=== PATIENT | female | born 1995 | race Caucasian/White ===

== ENCOUNTER 2023-05-07 11:47 | Inpatient (IN) ==
[2023-05-07] MEDS ORDERED: OXYTOCIN 30 UNITS/500 ML BAG IV PRN ×2 (12:34→23:04)
[2023-05-07] MEDS ORDERED: LIDOCAINE 1% LOCAL 20 ML VIAL INFIL PRN (12:34)
--- NOTE | 2023-05-07 12:40 | History & Physical Report ---
Date of Service May 07, 2023 Assessment & Plan (1) Supervision of normal intrauterine in primigravida: (2) Mother positive for group B Streptococcus colonization: Plan 27 yo G1 at 40 2/7 wga presents in labor VSS Fetus cat 1 Labor - augment PRN GBS+, pcn ordered epidural prn History of Present Illness Chief Complaint: ctx Primary Care Provider: Maritza Moreno, DO 27 yo G1 at 40 2/7 wga presents w/ ctx increasing in frequency and intensity. About q3min over the last hour. +FM; denies LOF, VB PNI: Maternal spina bifida occulta GBS+ Past PALLET REPAIRER Hx: G1 q26d cycles denies hx stis Allergies Allergy/AdvReac Type Severity Reaction Status Date / Time No Known Allergies Allergy Verified 05/04/23 11:52 Home Medications Medication Instructions Recorded Confirmed Type folic acid 1 mg tablet 4 mg PO DAILY 09/27/22 05/07/23 History omega-3 fatty acids [Fish Oil] PO 09/27/22 05/04/23 History prenat.vits,kelly,vom-qaqo-nlzyp 1 tab PO DAILY 09/27/22 05/07/23 History Patient History Medical History Asthma controlled, stable per pt; hasn't need inhalers for years Spina bifida occulta Surgical History S/P wisdom tooth extraction Family History (Updated 07/28/20 @ 12:45 by Elizabeth Davila MD) Grandmother (Maternal) Breast cancer, Onset Age: 74 Aunt No problems noted. Unknown Breast cancer Grandmother's aunt Other Arthritis Thyroid disease Denies family history of Ovarian cancer Colorectal cancer Uterine cancer Social History (Updated 09/27/22 @ 17:10 by My Burrows) Smoking Status: Never smoker Do You Dip or Chew Tobacco: No; Hx Alcohol Use: No Hx Substance Use: No Preferred Language: Bahraini Communication Ability: Effective Alumni Relations Officer Required: No Beliefs That Will Affect Care: None marital status: marital status details: Guillermo (26) [phone] Current Living Situation: Spouse Current Living Situation Comment: lives with spouse, 2 dogs. current occupational status: employed current occupation: Radiation therapist Other Information That Helps Us Care for You: No Feels Safe at Home: Yes Safety Concerns: Feels Safe At This Time Assistive Devices: None Physical Exam Genitourinary: OB Exam Abdomen: + vertex (confirmed by bsus) and + estimated weight (7-8) Manual OB Exam: + cervical dilation 4 cm, + cervical effacement 70% and + station -2 OB Exam Monitor Tracing: + external FHT monitor used, + external uterine monitor used (q3) and + category I (130/mod/+accel/-decel) Results & Data Vital Signs (Past 12 Hours) Vital Signs Temp Pulse Resp BP 05/07/23 12:07 98.1 F 20 05/07/23 12:00 74 120/82 Laboratory Results OB Labs: Blood Type A Positive 10/03/22 Antibody Screen NEGATIVE 10/03/22 Hemoglobin 12.2 g/dl (12.0-16.0) 02/16/23 Hematocrit 35.8 % (37.0-47.0) L 02/16/23 Mean Corpuscular Volume 86.0 fL (80.0-100.0) 10/03/22 Platelet Count 197 K/uL (130-400) 10/03/22 Rubella IgG Antibody Immune (Immune) 10/03/22 Rapid Plasma Reagin Nonreactive (Nonreactive) 10/03/22 Hepatitis B Surface Antigen. NON-REACTIVE (NON-REACTIVE) 10/03/22 Hepatitis C Antibody NEG (NEG) 01/10/18 Hepatitis C Antibody (EIA) NON-REACTIVE (NON-REACTIVE) 10/03/22 HIV (1&2) Ag and Ab Confirmation NON-REACTIVE (NON-REACTIVE) 10/03/22 Glucose 1 Hour 50 gm Load 97 mg/dl (70-130) 02/16/23 Maternal Serum Alpha Fetoprotein 46.3 ng/mL 11/22/22 OB Optional Labs: Chlamydia trachomatis RNA Not Detected (NotDetected) 10/03/22 Neisseria gonorrhoeae RNA Not Detected (NotDetected) 10/03/22 Alpha Fetoprotein Triple Screen SEE NOTE 11/22/22 Labs Reviewed: low risk cfdna neg cf/sma neg afp GBS neg Diagnostic Findings ant plac Coding Level of Care Code None Diagnoses Supervision of normal intrauterine in primigravida Z34.00 Mother positive for group B Streptococcus colonization P00.82
[2023-05-07] MEDS ORDERED: PENICILLIN G POTASSIUM 6 MU in DEXTROSE 5% 250 ML IV ONE (12:45)
[2023-05-07] MEDS: LACTATED RINGER'S 1,000 ML IV PRN ×2 (13:05→14:33)
[2023-05-07 13:08] LABS: Hematocrit (blood only) 34.5 % (37.0-47.0); Hemoglobin 11.2 g/dl (12.0-16.0); Mean Corpuscular Hemoglobin 25.2 pg (25.0-34.0); Mean Corpuscular Hgb Conc 32.5 g/dL (32.0-36.0); Mean Corpuscular Volume 77.5 fL (80.0-100.0); Mean Platelet Volume 11.8 fL (9.4-12.4); Platelet Count 123 K/uL (130-400); RDW Coefficient of Variation 14.1 % (11.5-14.5); RDW Standard Deviation 38.7 fL (36.4-46.3); Red Blood Count 4.45 M/uL (4.20-5.40); White Blood Count 10.72 K/ul (4.8-10.8)
[2023-05-07] MEDS ORDERED: SODIUM CHLORIDE 0.9% PF INJ 10 ML VIAL ONE (14:10)
[2023-05-07] MEDS ORDERED: fentaNYL citrate PF 100 MCG/2 ML VIAL ONE (14:10)
[2023-05-07] MEDS ORDERED: ePHEDrine sulfate 50 MG/ML AMP ONE (14:10)
[2023-05-07] MEDS ORDERED: BUPIVACAINE 0.25% PF 30 ML VIAL ONE (14:10)
[2023-05-07] MEDS ORDERED: LIDOCAINE 2%/EPINEPHRINE 1:200,000 20 ML PF ONE (14:10)
[2023-05-07] MEDS ORDERED: fentaNYL 2MCG/ML ROPIVACAINE 1.25MG/ML 100 ML BAG EPI ONE (14:11)
--- NOTE | 2023-05-07 15:03 | Anesthesiology Consultation ---
Date of Service May 07, 2023 Assessment & Plan Chart Review Chart Review: Acceptable Risk for Labor Epidural Consults Requested none History Height/Weight Height: 5 ft 7 in Weight: 70.307 kg Allergies Allergy/AdvReac Type Severity Reaction Status Date / Time No Known Allergies Allergy Verified 05/04/23 11:52 Medications Home Medications Medication Instructions Recorded Confirmed Last Taken folic acid 1 mg tablet 4 mg PO DAILY 09/27/22 05/07/23 05/07/23 omega-3 fatty acids [Fish Oil] PO 09/27/22 05/04/23 05/07/23 prenat.vits,kelly,oee-[id number]-uenxi 1 tab PO DAILY 09/27/22 05/07/23 05/07/23 Active Medications Generic Name Dose Route Start Last Admin Trade Name Freq PRN Reason Stop Dose Admin Lactated Ringer's 1,000 mls @ 125 mls/hr 05/07/23 12:34 05/07/23 14:33 Lr IV 05/09/23 12:33 125 mls/hr .Q8H PRN Administration L&D Protocol Protocol Past Medical History Medical History Asthma controlled, stable per pt; hasn't need inhalers for years Spina bifida occulta Past Family History Family History (Updated 07/28/20 @ 12:45 by Elizabeth Davila MD) Grandmother (Maternal) Breast cancer, Onset Age: 74 Aunt No problems noted. Unknown Breast cancer Grandmother's aunt Other Arthritis Thyroid disease Denies family history of Ovarian cancer Colorectal cancer Uterine cancer Past Surgical History Surgical History S/P wisdom tooth extraction Social History Smoking Status: Never smoker Do You Dip or Chew Tobacco: No Hx Alcohol Use: No Hx Substance Use: No Physical Exam Vital Signs Last Vital Signs Temp 36.7 C 05/07/23 12:07 Pulse 69 05/07/23 15:00 Resp 18 05/07/23 14:30 BP 105/59 L 05/07/23 15:00 Pulse Ox 100 05/07/23 14:59 Testing Laboratory Results 05/07/23 12:52
[2023-05-07] MEDS ORDERED: NALOXONE HCL 0.4 MG/1 ML VIAL/CARP IV PRN (15:04)
[2023-05-07] MEDS ORDERED: fentaNYL 2MCG/ML ROPIVACAINE 1.25MG/ML 100 ML BAG EPI PRN (15:04)
[2023-05-07] MEDS ORDERED: LIDOCAINE 2%/EPINEPHRINE 1:200,000 20 ML PF EPI STA (15:04)
[2023-05-07] MEDS ORDERED: LIDOCAINE 2% MPF LOCAL 5 ML VIAL EPI PRN (15:04)
[2023-05-07] MEDS ORDERED: NALOXONE HCL 1 MG in SODIUM CHLORIDE 0.9% 1,000 ML IV PRN (15:04)
[2023-05-07] MEDS ORDERED: ePHEDrine sulfate 50 MG/ML AMP IV PRN (15:04)
[2023-05-07] MEDS ORDERED: BUPIVACAINE 0.25% PF 30 ML VIAL EPI PRN (15:04)
[2023-05-07] MEDS ORDERED: NALBUPHINE HCL INJ 10 MG/ML AMP IV PRN (15:04)
[2023-05-07] MEDS ORDERED: diphenhydrAMINE 50 MG/ML VIAL IV PRN (15:04)
[2023-05-07] MEDS ORDERED: fentaNYL citrate PF 100 MCG/2 ML VIAL EPI STA (15:04)
[2023-05-07] MEDS ORDERED: BUPIVACAINE 0.25% PF 30 ML VIAL EPI STA (15:04)
[2023-05-07] MEDS ORDERED: SODIUM CHLORIDE 0.9% PF INJ 10 ML VIAL EPI PRN (15:04)
[2023-05-07] MEDS ORDERED: ROPIVACAINE 0.5% PF 5 MG/ML 20 ML VIAL EPI PRN (15:04)
[2023-05-07] MEDS ORDERED: SODIUM CHLORIDE 0.9% PF INJ 10 ML VIAL EPI STA (15:04)
[2023-05-07] MEDS ORDERED: fentaNYL citrate PF 100 MCG/2 ML VIAL EPI PRN (15:04)
[2023-05-07] MEDS ORDERED: PENICILLIN G POTASSIUM 3 MU in DEXTROSE 5% 100 ML IV PRN (15:34)
--- NOTE | 2023-05-07 18:46 | Labor Progress Brief Note ---
Date of Service May 07, 2023 Subjective Comfortable w/ epidural Assessment & Plan (1) Supervision of normal intrauterine in primigravida: (2) Mother positive for group B Streptococcus colonization: Plan 27 yo G1 at 40 2/7 wga presents in labor VSS Fetus cat 1 Labor - augment PRN, s/p arom. Discussed introitus does seem a little tight but hasn't seemed to affect dilation at all but will see if has impact on pushing GBS+, pcn ordered epidural in place Admission and Anticipated Discharge Date Admission Date: May 07, 2023 Physical Exam Genitourinary: Manual OB Exam: + cervical dilation 8 cm, + cervical effacement 90%, + station + 1 and + amniotic fluid (arom clear) OB Exam Monitor Tracing: + external FHT monitor used, + external uterine monitor used (q3) and + category I (130/mod/+accel/-decel) Results & Data Vital Signs (Past 12 Hours) Vital Signs Temp Pulse Resp BP Pulse Ox 05/07/23 12:07 98.1 F 20 05/07/23 18:39 99 05/07/23 18:39 61 05/07/23 18:34 98 05/07/23 18:34 70 05/07/23 18:35 63 05/07/23 18:35 110/61 05/07/23 18:30 18 05/07/23 18:30 18 05/07/23 18:29 97 05/07/23 18:29 85 05/07/23 18:24 100 05/07/23 18:24 78 05/07/23 18:21 60 05/07/23 18:21 119/74 05/07/23 18:19 100 05/07/23 18:19 63 05/07/23 18:14 99 05/07/23 18:14 66 05/07/23 18:09 100 05/07/23 18:09 60 05/07/23 18:00 20 05/07/23 18:00 98.8 F 20 05/07/23 18:00 20 05/07/23 18:00 98.8 F 20 05/07/23 18:04 100 05/07/23 18:04 64 05/07/23 18:05 60 05/07/23 18:05 125/77 05/07/23 17:59 100 05/07/23 17:59 60 05/07/23 17:54 95 05/07/23 17:54 75 05/07/23 17:52 88 L 05/07/23 17:51 78 05/07/23 17:52 79 05/07/23 17:51 101/53 L 05/07/23 17:49 100 05/07/23 17:49 77 05/07/23 17:44 100 05/07/23 17:44 73 05/07/23 17:30 16 05/07/23 17:30 16 05/07/23 17:00 18 05/07/23 17:00 18 05/07/23 17:39 100 05/07/23 17:39 69 05/07/23 17:35 94 H 05/07/23 17:35 117/65 05/07/23 17:34 79 L 05/07/23 17:34 67 05/07/23 17:29 99 05/07/23 17:29 65 05/07/23 17:26 87 L 05/07/23 17:26 65 05/07/23 17:24 95 05/07/23 17:24 67 05/07/23 17:21 66 05/07/23 17:21 116/80 05/07/23 17:19 100 05/07/23 17:19 60 05/07/23 17:14 100 05/07/23 17:14 66 05/07/23 17:09 100 05/07/23 17:09 64 05/07/23 17:07 62 05/07/23 17:07 115/73 05/07/23 17:04 98 05/07/23 17:04 69 05/07/23 17:03 85 L 05/07/23 17:03 69 05/07/23 16:59 100 05/07/23 16:59 67 05/07/23 16:54 95 05/07/23 16:54 64 05/07/23 16:51 66 05/07/23 16:51 109/72 05/07/23 16:49 100 05/07/23 16:49 63 05/07/23 16:44 100 05/07/23 16:44 68 05/07/23 16:39 100 05/07/23 16:39 65 05/07/23 16:35 87 L 05/07/23 16:35 74 05/07/23 16:34 100 05/07/23 16:34 66 05/07/23 16:35 65 05/07/23 16:35 113/76 05/07/23 16:29 97 05/07/23 16:29 75 05/07/23 16:24 100 05/07/23 16:24 76 05/07/23 16:19 100 05/07/23 16:19 65 05/07/23 16:20 65 05/07/23 16:20 110/70 05/07/23 16:14 100 05/07/23 16:14 65 05/07/23 16:09 100 05/07/23 16:09 70 05/07/23 16:00 20 05/07/23 16:00 98.1 F 20 05/07/23 16:05 67 05/07/23 16:05 115/72 05/07/23 16:04 100 05/07/23 16:04 72 05/07/23 16:03 85 L 05/07/23 16:03 68 05/07/23 15:59 100 05/07/23 15:59 64 05/07/23 15:54 100 05/07/23 15:54 67 05/07/23 15:51 66 05/07/23 15:51 118/77 05/07/23 15:49 100 05/07/23 15:49 69 05/07/23 15:30 18 05/07/23 15:30 18 05/07/23 15:49 85 L 05/07/23 15:49 65 05/07/23 15:44 100 05/07/23 15:44 67 05/07/23 15:39 100 05/07/23 15:39 74 05/07/23 15:37 66 05/07/23 15:37 115/67 05/07/23 15:34 100 05/07/23 15:34 68 05/07/23 15:29 100 05/07/23 15:29 64 05/07/23 15:24 100 05/07/23 15:24 69 05/07/23 15:19 100 05/07/23 15:19 68 05/07/23 15:16 63 05/07/23 15:16 109/69 05/07/23 15:14 100 05/07/23 15:14 67 05/07/23 15:11 71 05/07/23 15:11 103/75 05/07/23 15:09 100 05/07/23 15:09 70 05/07/23 15:00 20 05/07/23 15:00 98.2 F 20 05/07/23 15:03 18 05/07/23 15:03 18 05/07/23 15:08 20 05/07/23 15:08 20 05/07/23 15:07 71 05/07/23 15:07 118/67 05/07/23 14:58 18 05/07/23 14:58 18 05/07/23 12:10 98.2 F 05/07/23 15:04 100 05/07/23 15:04 68 05/07/23 15:00 69 05/07/23 15:00 105/59 L 05/07/23 14:59 100 05/07/23 14:59 67 05/07/23 14:58 78 05/07/23 14:58 112/66 05/07/23 14:56 69 05/07/23 14:56 117/71 05/07/23 14:54 99 05/07/23 14:54 67 05/07/23 14:54 120/75 05/07/23 14:53 70 05/07/23 14:53 117/62 05/07/23 14:52 70 05/07/23 14:52 118/63 05/07/23 14:49 91 05/07/23 14:49 84 05/07/23 14:49 71 05/07/23 14:49 142/77 H 05/07/23 14:48 86 L 05/07/23 14:48 89 05/07/23 14:48 130/79 05/07/23 14:44 95 05/07/23 14:44 70 05/07/23 14:41 82 L 05/07/23 14:41 84 05/07/23 14:39 100 05/07/23 14:39 74 05/07/23 14:30 18 05/07/23 14:30 18 05/07/23 14:34 99 05/07/23 14:34 64 05/07/23 14:33 93 05/07/23 14:33 69 05/07/23 14:29 100 05/07/23 14:29 64 05/07/23 14:25 90 05/07/23 14:25 74 05/07/23 14:24 100 05/07/23 14:24 70 05/07/23 14:00 18 05/07/23 14:00 18 05/07/23 13:30 20 05/07/23 13:30 20 05/07/23 14:19 100 05/07/23 14:19 73 05/07/23 13:00 20 05/07/23 13:00 20 05/07/23 12:30 18 05/07/23 12:30 18 05/07/23 12:10 20 05/07/23 12:10 20 05/07/23 12:00 74 120/82 Coding Level of Care Code None Diagnoses Supervision of normal intrauterine in primigravida Z34.00 Mother positive for group B Streptococcus colonization P00.82
--- NOTE | 2023-05-07 22:28 | Delivery Summary ---
Vaginal Delivery Summary Date of Service May 07, 2023 Vaginal Delivery Summary [facility] PREOPERATIVE DIAGNOSIS: 1. Single intrauterine at 40 2/7 wga 2. Labor 3. Maternal spina bifida occulta 4. GBS+ POSTOPERATIVE DIAGNOSIS: 1. Single intrauterine at 40 2/7 wga 2. Labor 3. Maternal spina bifida occulta 4. GBS+ 5. Delivered PROCEDURE: 1. Normal spontaneous vaginal delivery. SURGEON: Elizabeth Davila MD ANESTHESIA: Epidural. ESTIMATED BLOOD LOSS: 300 mL FLUIDS: Continuous LR. URINE OUTPUT: None. COMPLICATIONS: None. CONDITION: Stable. INDICATIONS: 27 yo G1 at 40 2/7 wga presented with contractions increasing in frequency and intensity and found to be 4cm on arrival. Penicillin was started for GBS+, received an epidural for pain control. She continued to progress and underwent AROM at 8cm. She continued to progress to complete and desired to push FINDINGS: A viable female infant, weight pending with Apgars of 7 and 9 at 1 and 5 minutes respectively. SPECIMEN: Cord blood OPERATIVE REPORT: The patient progressed to 10 cm, 100% effaced and +2 station, pushed over intact perineum with anesthesia to deliver a viable female infant, weight and Apgars as above. Head of delivered in THIAGO position. No nuchal cord was present. Body and shoulders were delivered without difficulty. was delivered to maternal abdomen and nursing staff. Delayed cord clamping was performed for 60 seconds. Cord was clamped and cut. Cord blood was obtained. Placenta delivered spontaneously intact with 3-vessel cord. IV oxytocin and fundal massage were given for excellent hemostasis. Vagina, cervix, perineum, and placenta were inspected. A left vaginal tear was repaired using 3-[address]-1, there was excellent hemostasis. Sponge and needle counts correct x2. No sponges were left behind. Mother and stable in immediate period. [facility] Vaginal Delivery Charge Vaginal Delivery Codes: 20136 global code for the antepartum, delivery, and post- Delivery Type Details: [facility]
[2023-05-07] MEDS ORDERED: DIPHTHERIA/TETANUS/PERTUSSIS Vaccine (Tdap, Age 7+yrs) 0.5mL SYR/VL IM ONE (23:04)
[2023-05-07] MEDS ORDERED: HYDROCORTISONE ACETATE 25 MG SUPP PR PRN (23:04)
[2023-05-07] MEDS ORDERED: ACETAMINOPHEN 325 MG TAB PO PRN (23:04)
[2023-05-07] MEDS ORDERED: BENZOCAINE 20% SPRY 85 APPLN/85 GM CAN EXT PRN (23:04)
[2023-05-08] MEDS: IBUPROFEN 600 MG TAB PO PRN ×4 (01:19→17:16)
--- NOTE | 2023-05-08 06:55 | Obstetrical Progress Note ---
Date of Service <Adam Reyes MD - Last Filed: 05/08/23 08:44> May 08, 2023 Assessment & Plan <Adam Reyes MD - Last Filed: 05/08/23 08:44> (1) (spontaneous vaginal delivery): Plan 27 yo , day 1, status post , on 05/07/23, 1st deg LAC - Pt doing well clinically. Feels well today. Eating well, voiding well, ambulating well. Pain well controlled with PRN pain meds. - Routine care -- OOB, ambulation, diet progression as tolerated Vital Signs reviewed and WNL (Tmax at 37.1 C) except as noted: BP 163/69, P 58 last night post-delivery. Hemoglobin Reviewed. 11.2 (05/07/23). Blood Type: A+, GBS+, Rubella Immune. Encourage ambulation, monitor and control pain with Motrin PRN, resume regular diet, monitor lochia. Breast feeding encouraged. After discharge will have 6 week follow-up with Dr. Davila. <Elizabeth Davila MD - Last Filed: 05/08/23 15:53> (1) (spontaneous vaginal delivery): Subjective <Adam Reyes MD - Last Filed: 05/08/23 08:44> Ambulation: ambulating normally Voiding: no voiding problems Passing Gas:: Yes Diet Tolerance:: regular diet Lochia:: Moderate Feeding Type:: breast feeding (will supplement with formula) Current Pain Level(1-10): 4 (cramping pain diffusely in abdominal area) Constitutional: no fever or no chills Respiratory: no cough or no dyspnea Cardiovascular: no chest pain or no palpitations Gastrointestinal: no abdominal pain, no nausea, no vomiting, no constipation (no BM yet) or no diarrhea/loose stools Musculoskeletal: no myalgia (no calf pain) Physical Exam <Adam Reyes MD - Last Filed: 05/08/23 08:44> Constitutional WD/WN, vitals as above Respiratory normal respiratory effort, lungs clear to auscultation Cardiovascular RRR, no murmur, no edema Gastrointestinal (Abdomen) normal bowel sounds, soft, nontender, no hepatosplenomegaly Musculoskeletal Extremities: extremities normal to inspection (no calf pain or tenderness) Results & Data <Adam Reyes MD - Last Filed: 05/08/23 08:44> Vital Signs (Past 12 Hours) Vital Signs Temp Pulse Pulse Resp BP BP Pulse Ox 05/08/23 03:36 36.4 C L 65 18 118/76 99 05/08/23 00:51 36.8 C 72 18 113/75 97 05/08/23 00:06 71 163/69 H 05/07/23 23:34 58 L 05/07/23 23:34 124/70 05/07/23 23:07 80 05/07/23 23:07 112/62 05/07/23 22:57 68 05/07/23 22:57 119/77 05/07/23 22:47 69 05/07/23 22:47 117/63 05/07/23 22:37 71 05/07/23 22:37 119/61 05/07/23 22:27 78 05/07/23 22:27 108/60 05/07/23 22:14 96 05/07/23 22:14 91 H 05/07/23 22:10 87 05/07/23 22:10 118/58 L 05/07/23 22:09 96 05/07/23 22:09 93 H 05/07/23 22:05 117 H 05/07/23 22:05 129/70 05/07/23 22:04 94 05/07/23 22:04 152 H 05/07/23 21:59 95 05/07/23 21:59 133 H 05/07/23 21:54 95 05/07/23 21:54 107 H 05/07/23 21:49 96 05/07/23 21:49 86 05/07/23 21:44 96 05/07/23 21:44 80 05/07/23 21:39 96 05/07/23 21:39 69 05/07/23 21:34 96 05/07/23 21:34 74 05/07/23 21:29 97 05/07/23 21:29 81 05/07/23 21:24 96 05/07/23 21:24 90 05/07/23 21:20 97 H 05/07/23 21:20 127/70 05/07/23 21:19 96 05/07/23 21:19 81 05/07/23 21:14 97 05/07/23 21:14 95 H 05/07/23 21:09 96 05/07/23 21:09 74 05/07/23 21:07 88 L 05/07/23 21:07 79 05/07/23 21:05 77 05/07/23 21:05 128/59 L 05/07/23 21:04 97 05/07/23 21:04 73 05/07/23 20:59 99 05/07/23 20:59 78 05/07/23 20:54 100 05/07/23 20:54 79 05/07/23 20:51 91 H 05/07/23 20:51 136/70 05/07/23 20:49 99 05/07/23 20:49 76 05/07/23 20:44 98 05/07/23 20:44 80 05/07/23 20:39 97 05/07/23 20:39 69 05/07/23 20:36 71 05/07/23 20:36 111/73 05/07/23 20:34 98 05/07/23 20:34 74 05/07/23 20:29 97 05/07/23 20:29 72 05/07/23 20:24 98 05/07/23 20:24 70 05/07/23 20:20 68 05/07/23 20:20 107/70 05/07/23 20:19 96 05/07/23 20:19 67 05/07/23 20:14 97 05/07/23 20:14 69 05/07/23 20:09 97 05/07/23 20:09 76 05/07/23 20:07 67 05/07/23 20:07 111/72 05/07/23 20:04 98 05/07/23 20:04 72 05/07/23 19:59 98 05/07/23 19:59 73 05/07/23 19:54 97 05/07/23 19:54 74 05/07/23 19:50 78 05/07/23 19:50 103/60 05/07/23 19:49 99 05/07/23 19:49 91 H 05/07/23 19:44 97 05/07/23 19:44 65 05/07/23 19:39 96 05/07/23 19:39 66 05/07/23 19:35 64 05/07/23 19:35 111/62 05/07/23 19:34 98 05/07/23 19:34 65 05/07/23 19:29 98 05/07/23 19:29 65 05/07/23 19:24 99 05/07/23 19:24 67 05/07/23 19:19 97 05/07/23 19:19 69 05/07/23 19:20 67 05/07/23 19:20 102/62 05/07/23 19:14 98 05/07/23 19:14 72 05/07/23 19:09 98 05/07/23 19:09 61 05/07/23 19:06 64 05/07/23 19:06 106/57 L 05/07/23 19:04 98 05/07/23 19:04 69 05/07/23 19:00 20 05/07/23 19:00 20 05/07/23 18:59 98 05/07/23 18:59 64 05/07/23 18:54 99 05/07/23 18:54 63 O2 Del Method 05/08/23 03:36 Room Air 05/08/23 00:51 Room Air 05/08/23 00:06 05/07/23 23:34 05/07/23 23:34 05/07/23 23:07 05/07/23 23:07 05/07/23 22:57 05/07/23 22:57 05/07/23 22:47 05/07/23 22:47 05/07/23 22:37 05/07/23 22:37 05/07/23 22:27 05/07/23 22:27 05/07/23 22:14 05/07/23 22:14 05/07/23 22:10 05/07/23 22:10 05/07/23 22:09 05/07/23 22:09 05/07/23 22:05 05/07/23 22:05 05/07/23 22:04 05/07/23 22:04 05/07/23 21:59 05/07/23 21:59 05/07/23 21:54 05/07/23 21:54 05/07/23 21:49 05/07/23 21:49 05/07/23 21:44 05/07/23 21:44 05/07/23 21:39 05/07/23 21:39 05/07/23 21:34 05/07/23 21:34 05/07/23 21:29 05/07/23 21:29 05/07/23 21:24 05/07/23 21:24 05/07/23 21:20 05/07/23 21:20 05/07/23 21:19 05/07/23 21:19 05/07/23 21:14 05/07/23 21:14 05/07/23 21:09 05/07/23 21:09 05/07/23 21:07 05/07/23 21:07 05/07/23 21:05 05/07/23 21:05 05/07/23 21:04 05/07/23 21:04 05/07/23 20:59 05/07/23 20:59 05/07/23 20:54 05/07/23 20:54 05/07/23 20:51 05/07/23 20:51 05/07/23 20:49 05/07/23 20:49 05/07/23 20:44 05/07/23 20:44 05/07/23 20:39 05/07/23 20:39 05/07/23 20:36 05/07/23 20:36 05/07/23 20:34 05/07/23 20:34 05/07/23 20:29 05/07/23 20:29 05/07/23 20:24 05/07/23 20:24 05/07/23 20:20 05/07/23 20:20 05/07/23 20:19 05/07/23 20:19 05/07/23 20:14 05/07/23 20:14 05/07/23 20:09 05/07/23 20:09 05/07/23 20:07 05/07/23 20:07 05/07/23 20:04 05/07/23 20:04 05/07/23 19:59 05/07/23 19:59 05/07/23 19:54 05/07/23 19:54 05/07/23 19:50 05/07/23 19:50 05/07/23 19:49 05/07/23 19:49 05/07/23 19:44 05/07/23 19:44 05/07/23 19:39 05/07/23 19:39 05/07/23 19:35 05/07/23 19:35 05/07/23 19:34 05/07/23 19:34 05/07/23 19:29 05/07/23 19:29 05/07/23 19:24 05/07/23 19:24 05/07/23 19:19 05/07/23 19:19 05/07/23 19:20 05/07/23 19:20 05/07/23 19:14 05/07/23 19:14 05/07/23 19:09 05/07/23 19:09 05/07/23 19:06 05/07/23 19:06 05/07/23 19:04 05/07/23 19:04 05/07/23 19:00 05/07/23 19:00 05/07/23 18:59 05/07/23 18:59 05/07/23 18:54 05/07/23 18:54 <Elizabeth Davila MD - Last Filed: 05/08/23 15:53> Co-Signing Physician Notes Resident Physician Supervision Note: I interviewed and examined the patient. Discussed with Dr. Reyes and agree with findings and plan as documented in the note. Any exceptions or clarifications are listed here: PP1 s/p , doing well. Continue routien pp care Documented By: Elizabeth Davila MD
[2023-05-08] MEDS: DOCUSATE SODIUM 100 MG CAP PO SCH ×2 (08:18→20:43)
[2023-05-08] MEDS: FERROUS SULFATE 325 MG TAB PO SCH (08:18)
[2023-05-08] MEDS: PRENATAL VITAMIN 1 TAB PO SCH (08:18)
--- NOTE | 2023-05-08 08:30 | Obstetrical Progress Note ---
Date of Service May 08, 2023 Assessment & Plan (1) Encounter for care and examination after delivery: 27 yo PP1 from , doing well -Meeting all pp milestones -A+/rubella immune/ -f/u 6 weeks for appt, continue routine pp care Subjective Ambulation: ambulating normally Voiding: no voiding problems Passing Gas:: Yes Diet Tolerance:: regular diet Lochia:: Small Feeding Type:: breast feeding Pain well managed with medication Review of Systems Denies fevers, chills, n/v, CACERES, CP, SOB Physical Exam Constitutional WD/WN, vitals as above no acute distress Respiratory normal respiratory effort, lungs clear to auscultation Cardiovascular RRR, no murmur, no edema Gastrointestinal (Abdomen) Percussion/Palpation: abdomen soft; abdomen nontender fundus firm at umbilicus and NT Musculoskeletal BLE symmetric, nonerythematous, nontender Results & Data Vital Signs (Past 12 Hours) Vital Signs Temp Pulse Pulse Resp BP BP Pulse Ox 05/08/23 03:36 97.5 F L 65 18 118/76 99 05/08/23 00:51 98.2 F 72 18 113/75 97 05/08/23 00:06 71 163/69 H 05/07/23 23:34 58 L 05/07/23 23:34 124/70 05/07/23 23:07 80 05/07/23 23:07 112/62 05/07/23 22:57 68 05/07/23 22:57 119/77 05/07/23 22:47 69 05/07/23 22:47 117/63 05/07/23 22:37 71 05/07/23 22:37 119/61 05/07/23 22:27 78 05/07/23 22:27 108/60 05/07/23 22:14 96 05/07/23 22:14 91 H 05/07/23 22:10 87 05/07/23 22:10 118/58 L 05/07/23 22:09 96 05/07/23 22:09 93 H 05/07/23 22:05 117 H 05/07/23 22:05 129/70 05/07/23 22:04 94 05/07/23 22:04 152 H 05/07/23 21:59 95 05/07/23 21:59 133 H 05/07/23 21:54 95 05/07/23 21:54 107 H 05/07/23 21:49 96 05/07/23 21:49 86 05/07/23 21:44 96 05/07/23 21:44 80 05/07/23 21:39 96 05/07/23 21:39 69 05/07/23 21:34 96 05/07/23 21:34 74 05/07/23 21:29 97 05/07/23 21:29 81 05/07/23 21:24 96 05/07/23 21:24 90 05/07/23 21:20 97 H 05/07/23 21:20 127/70 05/07/23 21:19 96 05/07/23 21:19 81 05/07/23 21:14 97 05/07/23 21:14 95 H 05/07/23 21:09 96 05/07/23 21:09 74 05/07/23 21:07 88 L 05/07/23 21:07 79 05/07/23 21:05 77 05/07/23 21:05 128/59 L 05/07/23 21:04 97 05/07/23 21:04 73 05/07/23 20:59 99 05/07/23 20:59 78 05/07/23 20:54 100 05/07/23 20:54 79 05/07/23 20:51 91 H 05/07/23 20:51 136/70 05/07/23 20:49 99 05/07/23 20:49 76 05/07/23 20:44 98 05/07/23 20:44 80 05/07/23 20:39 97 05/07/23 20:39 69 05/07/23 20:36 71 05/07/23 20:36 111/73 05/07/23 20:34 98 05/07/23 20:34 74 O2 Del Method 05/08/23 03:36 Room Air 05/08/23 00:51 Room Air 05/08/23 00:06 05/07/23 23:34 05/07/23 23:34 05/07/23 23:07 05/07/23 23:07 05/07/23 22:57 05/07/23 22:57 05/07/23 22:47 05/07/23 22:47 05/07/23 22:37 05/07/23 22:37 05/07/23 22:27 05/07/23 22:27 05/07/23 22:14 05/07/23 22:14 05/07/23 22:10 05/07/23 22:10 05/07/23 22:09 05/07/23 22:09 05/07/23 22:05 05/07/23 22:05 05/07/23 22:04 05/07/23 22:04 05/07/23 21:59 05/07/23 21:59 05/07/23 21:54 05/07/23 21:54 05/07/23 21:49 05/07/23 21:49 05/07/23 21:44 05/07/23 21:44 05/07/23 21:39 05/07/23 21:39 05/07/23 21:34 05/07/23 21:34 05/07/23 21:29 05/07/23 21:29 05/07/23 21:24 05/07/23 21:24 05/07/23 21:20 05/07/23 21:20 05/07/23 21:19 05/07/23 21:19 05/07/23 21:14 05/07/23 21:14 05/07/23 21:09 05/07/23 21:09 05/07/23 21:07 05/07/23 21:07 05/07/23 21:05 05/07/23 21:05 05/07/23 21:04 05/07/23 21:04 05/07/23 20:59 05/07/23 20:59 05/07/23 20:54 05/07/23 20:54 05/07/23 20:51 05/07/23 20:51 05/07/23 20:49 05/07/23 20:49 05/07/23 20:44 05/07/23 20:44 05/07/23 20:39 05/07/23 20:39 05/07/23 20:36 05/07/23 20:36 05/07/23 20:34 05/07/23 20:34
--- NOTE | 2023-05-08 08:45 | Anesthesia Procedure Note ---
Date of Service May 08, 2023 Anesthesia Post Epidural Note Vital Signs Vital Signs: Temp Pulse Resp BP Pulse Ox O2 Del Method 36.7 C 66 18 121/76 99 Room Air 05/08/23 08:05 05/08/23 08:05 05/08/23 08:05 05/08/23 08:05 05/08/23 03:36 05/08/23 08:05 Pain Intensity Lower Abdomen: Pain Intensity: 2 Notes Mental Status: alert / awake / arousable and participated in evaluation Nausea / Vomiting: adequately controlled Pain: adequately controlled Airway Patency, RR, SpO2: stable & adequate BP & HR: stable & adequate Hydration State: stable & adequate Neuraxial Anesthesia: was administered and sensory block resolved Anesthetic Complications: no major complications apparent and Pt Satisfied with anesthetic care Epidural: Removed without complications and With tip intact
--- NOTE | 2023-05-08 18:49 | Obstetrical Progress Note ---
Date of Service <Adam Reyes MD - Last Filed: 05/09/23 06:22> May 08, 2023 Assessment & Plan <Adam Reyes MD - Last Filed: 05/09/23 06:22> (1) (spontaneous vaginal delivery): Plan 27 yo , day 2, status post , of a girl on 05/07/23, 1st deg LAC - Pt doing well clinically. Feels well today. Eating well, voiding well, ambulating well. Pain well controlled with PRN pain meds. - Routine care -- OOB, ambulation, diet progression as tolerated Vital Signs reviewed and WNL (Tmax at 37.1 C) except as noted: BP 163/69, P 58 last night post-delivery. Hemoglobin Reviewed. 11.2 (05/07/23). Blood Type: A+, GBS+, Rubella Immune. Encourage ambulation, monitor and control pain with Motrin PRN, resume regular diet, monitor lochia. Breast feeding encouraged. After discharge will have 6 week follow-up with Dr. Davila. <Beatriz Guo MD, FACOG - Last Filed: 05/09/23 07:56> (1) (spontaneous vaginal delivery): Subjective <Adam Reyes MD - Last Filed: 05/09/23 06:22> Ambulation: ambulating normally Voiding: no voiding problems Passing Gas:: Yes Diet Tolerance:: regular diet Lochia:: Small Feeding Type:: breast feeding (and formula feeding) Current Pain Level(1-10): 4 (when pt moving around: cramping in abd area, residual pain in perineal area) Constitutional: no fever or no chills Respiratory: no cough or no dyspnea Cardiovascular: no chest pain or no palpitations Gastrointestinal: + abdominal pain (cramping pain when moving about); no nausea, no vomiting, no constipation (no BM yet) or no diarrhea/loose stools Musculoskeletal: no myalgia (no calf pain) Physical Exam <Adam Reyes MD - Last Filed: 05/09/23 06:22> Constitutional WD/WN, vitals as above Respiratory normal respiratory effort, lungs clear to auscultation Cardiovascular RRR, no murmur, no edema Gastrointestinal (Abdomen) normal bowel sounds, soft, nontender, no hepatosplenomegaly Musculoskeletal Extremities: extremities normal to inspection (no calf pain or tenderness) Results & Data <Adam Reyes MD - Last Filed: 05/09/23 06:22> Vital Signs (Past 12 Hours) Vital Signs Temp Pulse Resp BP O2 Del Method 05/08/23 17:20 36.5 C 66 18 121/76 Room Air 05/08/23 12:10 36.3 C L 67 18 121/84 Room Air 05/08/23 08:05 36.7 C 66 18 121/76 Room Air <Beatriz Guo MD, FACOG - Last Filed: 05/09/23 07:56> Co-Signing Physician Notes Resident Physician Supervision Note: I interviewed and examined the patient. Discussed with Dr. Reilly and agree with findings and plan as documented in the note. Any exceptions or clarifications are listed here: Doing well. Plan d/c home. Instructions given. Documented By: Beatriz Guo MD, FACOG
[2023-05-08] MEDS ORDERED: bisacodyL 5 MG TABEC PO SCH (20:00)
[2023-05-09] MEDS: FERROUS SULFATE 325 MG TAB PO SCH (09:23)
[2023-05-09] MEDS: PRENATAL VITAMIN 1 TAB PO SCH (09:23)
[2023-05-09] MEDS: DOCUSATE SODIUM 100 MG CAP PO SCH (09:24)
[2023-05-09] MEDS: IBUPROFEN 600 MG TAB PO PRN (09:24)
[2023-05-09] MEDS ORDERED: bisacodyL 10 MG SUPP PR PRN (23:04)
== END 2023-05-09 12:00 | disposition home or self-care (01) | DRG 807 ==
LOC: OPB 11:47 → 4S1 11:48 → 4E2 05-08 01:10

== ENCOUNTER 2025-06-12 14:25 | Inpatient (IN) ==
[2025-06-12] MEDS ORDERED: LIDOCAINE 1% LOCAL 20 ML VIAL INFIL PRN (16:40)
[2025-06-12] MEDS: LACTATED RINGER'S 1,000 ML IV PRN (16:49)
[2025-06-12] MEDS: PENICILLIN GK 6 MU in DEXTROSE 5% 250 ML IV STA (16:57)
[2025-06-12 17:19] LABS: Hematocrit (blood only) 35.2 % (37.0-47.0); Hemoglobin 11.6 g/dL (12.0-16.0); Mean Corpuscular Hemoglobin 26.6 pg (25.0-34.0); Mean Corpuscular Volume 80.7 fL (80.0-100.0); Platelet Count 135 K/uL (130-400); RDW Standard Deviation 38.8 fL (36.4-46.3); Red Blood Count 4.36 M/uL (4.20-5.40); White Blood Count 7.89 K/ul (4.8-10.8)
[2025-06-12] MEDS ORDERED: ROPIVACAINE 0.5% PF 5 MG/ML 20 ML VIAL EPI PRN (17:21)
[2025-06-12] MEDS ORDERED: diphenhydrAMINE 50 MG/ML VIAL IV PRN (17:21)
[2025-06-12] MEDS ORDERED: LIDOCAINE 2% MPF LOCAL 5 ML VIAL EPI PRN (17:21)
[2025-06-12] MEDS ORDERED: fentANYL 2 MCG/ML BUPIVacaine 0.125%-NSS 100ML BAG EPI PRN (17:21)
[2025-06-12] MEDS ORDERED: NALBUPHINE HCL INJ 10 MG/ML AMP IV PRN (17:21)
[2025-06-12] MEDS ORDERED: NALOXONE HCL 1 MG in SODIUM CHLORIDE 0.9% 1,000 ML IV PRN (17:21)
[2025-06-12] MEDS ORDERED: ONDANSETRON INJ 2 MG/ML 2 ML VIAL IV PRN (17:21)
[2025-06-12] MEDS ORDERED: BUPIVACAINE 0.25% PF 30 ML VIAL EPI PRN (17:21)
[2025-06-12] MEDS ORDERED: NALOXONE HCL 0.4 MG/1 ML VIAL/CARP IV PRN (17:21)
[2025-06-12] MEDS ORDERED: SODIUM CHLORIDE 0.9% PF INJ 10 ML VIAL EPI PRN (17:21)
--- NOTE | 2025-06-12 17:24 | Anesthesiology Consultation ---
Date of Service June 12, 2025 Assessment & Plan (1) Encounter for pre-operative examination: Chart Review Chart Review: Patient NOT seen in Pre Admission Testing and Acceptable Risk for Labor Epidural Consults Requested none History Height/Weight Height: 5 ft 7 in Weight: 70.307 kg Allergies Allergy/AdvReac Type Severity Reaction Status Date / Time No Known Allergies Allergy Verified 06/05/25 14:42 Medications Home Medications Medication Instructions Recorded Confirmed Last Taken folic acid 1 mg tablet 4 mg PO DAILY 09/27/22 06/05/25 05/07/23 omega-3 fatty acids [Fish Oil] PO 09/27/22 06/05/25 05/07/23 prenat.vits,kelly,axb-nadr-fkrvo 1 tab PO DAILY 09/27/22 06/12/25 06/11/25 21:00 pyridoxine (vitamin B6) 10 mg 10 mg PO DAILY 11/11/24 06/05/25 Unknown tablet ferrous sulfate 27 mg iron tablet 27 mg PO DAILY 06/12/25 06/12/25 06/11/25 21:00 Active Medications Generic Name Dose Route Start Last Admin Trade Name Freq PRN Reason Stop Dose Admin Lactated Ringer's 1,000 mls @ 125 mls/hr 06/12/25 16:40 06/12/25 16:49 Lr IV 06/14/25 16:39 999 mls/hr .Q8H PRN Administration L&D Protocol Protocol Penicillin G Potassium 6 mu/ 262 mls @ 250 mls/hr 06/12/25 16:45 06/12/25 16:57 Dextrose IV 06/12/25 17:47 250 mls/hr NOW STA Administration Past Medical History Medical History (Updated 06/12/25 @ 17:24 by Zoltan Keller MD) Encounter for pre-operative examination Asthma controlled, stable per pt; hasn't need inhalers for years Spina bifida occulta - No issues with labor epidural 05/07/23 (placed at L4-5 with 1 attempt)- patient denies issues from her standpoint with epidural - Please see 02/15/23 anesthesia consultation for further documentation Past Family History Family History Grandmother (Maternal) Breast cancer, Onset Age: 74 Aunt No problems noted. Unknown Breast cancer Grandmother's aunt Other Arthritis Thyroid disease Denies family history of Ovarian cancer Colorectal cancer Uterine cancer Past Surgical History Surgical History S/P wisdom tooth extraction Social History Smoking Status: Never smoker Do You Dip or Chew Tobacco: No Hx Alcohol Use: No Hx Substance Use: No Physical Exam Vital Signs Last Vital Signs Temp 36.7 C 06/12/25 14:42 Pulse 74 06/12/25 17:22 Resp 22 06/12/25 14:42 BP 129/80 06/12/25 14:33 Pulse Ox 100 06/12/25 17:22 Testing Laboratory Results 06/12/25 17:00
[2025-06-12] MEDS: BUPIVACAINE 0.25% PF 30 ML VIAL ONE (17:44)
[2025-06-12] MEDS: fentANYL 2 MCG/ML BUPIVacaine 0.125%-NSS 100ML BAG ONE (17:45)
[2025-06-12] MEDS: LIDOCAINE 2%/EPINEPHRINE 1:200,000 20 ML PF ONE (17:45)
[2025-06-12] MEDS: SODIUM CHLORIDE 0.9% PF INJ 10 ML VIAL ONE (17:58)
[2025-06-12] MEDS: BUPIVACAINE 0.25% PF 30 ML VIAL EPI STA (17:58)
[2025-06-12] MEDS: LIDOCAINE 2%/EPINEPHRINE 1:200,000 20 ML PF EPI STA (17:59)
[2025-06-12] MEDS: PENICILLIN GK 3 MU in DEXTROSE 5% 100 ML IV PRN (20:03)
[2025-06-12] MEDS: SODIUM CHLORIDE 0.9% PF INJ 10 ML VIAL EPI STA (20:05)
--- NOTE | 2025-06-12 20:43 | History & Physical Report ---
Date of Service June 12, 2025 Assessment & Plan (1) Encounter for supervision of normal in multigravida: Plan: Admit to L&D. EFM/toco. Labs. Would like to try to labor as naturally as possible. Admission and Anticipated Discharge Date Admission Date: June 12, 2025 History of Present Illness Chief Complaint: contractions Primary Care Provider: Maritza Moreno 29yo @ 39 07/30, came to L&D juan a all morning, some bloody show. + movement. No vaginal bleeding. Not leaking fluid. and Delivery Plans Patient with Spina Bifida Occulta per anesthesia-no need for another consult afp screen negative GBS Positive *treat in Labor Allergies Allergy/AdvReac Type Severity Reaction Status Date / Time No Known Allergies Allergy Verified 06/05/25 14:42 Home Medications Medication Instructions Recorded Confirmed Type folic acid 1 mg tablet 4 mg PO DAILY 09/27/22 06/05/25 History omega-3 fatty acids [Fish Oil] PO 09/27/22 06/05/25 History prenat.vits,kelly,mze-xbpf-mibic 1 tab PO DAILY 09/27/22 06/12/25 History pyridoxine (vitamin B6) 10 mg 10 mg PO DAILY 11/11/24 06/05/25 History tablet ferrous sulfate 27 mg iron tablet 27 mg PO DAILY 06/12/25 06/12/25 History Patient History Medical History (Updated 06/12/25 @ 17:24 by Zoltan Keller MD) Encounter for pre-operative examination Asthma controlled, stable per pt; hasn't need inhalers for years Spina bifida occulta - No issues with labor epidural 05/07/23 (placed at L4-5 with 1 attempt)- patient denies issues from her standpoint with epidural - Please see 02/15/23 anesthesia consultation for further documentation Surgical History S/P wisdom tooth extraction Family History Grandmother (Maternal) Breast cancer, Onset Age: 74 Aunt No problems noted. 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 Constitutional: WD/WN, vitals as above Respiratory: normal respiratory effort, lungs clear to auscultation no respiratory distress Cardiovascular: Rate/Rhythm: regular rate and regular rhythm Gastrointestinal (Abdomen): Inspection/Auscultation: abdomen normal to inspection Percussion/Palpation: abdomen soft; abdomen nontender Gravid. No s/s chorio or abruption. Skin: no rashes, warm and dry Psychiatric: A+Ox3, euthymic affect Results & Data Vital Signs (Past 12 Hours) Vital Signs Temp Pulse Resp BP Pulse Ox 06/12/25 20:32 99 06/12/25 20:32 77 06/12/25 20:27 82 L 06/12/25 20:27 78 06/12/25 20:22 100 06/12/25 20:22 67 06/12/25 20:17 100 06/12/25 20:17 67 06/12/25 20:12 99 06/12/25 20:12 68 06/12/25 20:10 67 06/12/25 20:10 112/68 06/12/25 20:07 98 06/12/25 20:07 83 06/12/25 20:02 100 06/12/25 20:02 79 06/12/25 19:57 99 06/12/25 19:57 74 06/12/25 19:55 77 06/12/25 19:55 109/66 06/12/25 19:52 100 06/12/25 19:52 78 06/12/25 19:47 100 06/12/25 19:47 75 06/12/25 19:42 99 06/12/25 19:42 76 06/12/25 19:40 73 06/12/25 19:40 111/63 06/12/25 19:37 100 06/12/25 19:37 73 06/12/25 19:32 99 06/12/25 19:32 76 06/12/25 19:27 100 06/12/25 19:27 77 06/12/25 19:26 80 06/12/25 19:26 116/71 06/12/25 19:22 100 06/12/25 19:22 75 06/12/25 19:17 100 06/12/25 19:17 76 06/12/25 19:12 100 06/12/25 19:12 75 06/12/25 19:12 112/60 06/12/25 19:07 100 06/12/25 19:07 96 H 06/12/25 19:02 100 06/12/25 19:02 95 H 06/12/25 19:00 36.7 C 18 06/12/25 19:00 87 L 06/12/25 19:00 87 06/12/25 18:57 100 06/12/25 18:57 88 06/12/25 18:56 73 06/12/25 18:56 113/71 06/12/25 18:52 100 06/12/25 18:52 84 06/12/25 18:47 100 06/12/25 18:47 76 06/12/25 18:42 98 06/12/25 18:42 82 06/12/25 18:41 72 06/12/25 18:41 112/70 06/12/25 18:37 100 06/12/25 18:37 75 06/12/25 18:32 100 06/12/25 18:32 81 06/12/25 18:27 100 06/12/25 18:27 76 06/12/25 18:27 111/73 06/12/25 18:22 100 06/12/25 18:22 79 06/12/25 18:17 100 06/12/25 18:17 76 06/12/25 18:12 100 06/12/25 18:12 77 06/12/25 18:10 81 06/12/25 18:10 113/67 11/20/25 18:07 99 06/12/25 18:07 79 06/12/25 18:04 80 06/12/25 18:04 112/74 06/12/25 18:02 100 06/12/25 18:02 88 06/12/25 18:02 109/69 06/12/25 18:00 91 H 06/12/25 18:00 100/71 06/12/25 17:58 90 06/12/25 17:58 103/72 06/12/25 17:57 100 06/12/25 17:57 85 06/12/25 17:56 100/68 06/12/25 17:54 82 06/12/25 17:54 111/70 06/12/25 17:52 96 06/12/25 17:52 89 06/12/25 17:52 114/67 06/12/25 17:50 73 06/12/25 17:50 113/70 06/12/25 17:48 75 06/12/25 17:48 116/70 06/12/25 17:47 100 06/12/25 17:47 82 06/12/25 17:46 79 06/12/25 17:46 122/74 06/12/25 17:44 71 06/12/25 17:44 113/62 06/12/25 17:42 100 06/12/25 17:42 87 06/12/25 17:42 114/88 06/12/25 17:42 94 06/12/25 17:42 109 H 06/12/25 17:40 81 06/12/25 17:40 121/83 06/12/25 17:37 100 06/12/25 17:37 87 06/12/25 17:32 97 06/12/25 17:32 96 H 06/12/25 17:27 98 06/12/25 17:27 92 H 06/12/25 17:22 100 06/12/25 17:22 74 06/12/25 17:17 100 06/12/25 17:17 75 06/12/25 14:42 36.7 C 22 06/12/25 14:33 36.7 C 84 22 129/80 Code Status & VTE Plan VTE Prophylaxis Plan VTE Prophylaxis will be ordered: No Reason for no VTE drug order: Treatment not indicated Coding Level of Care Code None Diagnoses Encounter for supervision of normal in multigravida Z34.80
--- NOTE | 2025-06-12 22:01 | Labor Progress Brief Note ---
Date of Service June 12, 2025 Subjective Comfortable with epidural. FHT Cat 1 Swisher Q 2 SVE 9.5/100/+1, AROM forebag clear fluid Continue labor. Assessment & Plan Admission and Anticipated Discharge Date Admission Date: June 12, 2025 Results & Data Vital Signs (Past 12 Hours) Vital Signs Temp Pulse Resp BP Pulse Ox 06/12/25 21:57 96 06/12/25 21:57 95 H 06/12/25 21:56 109 H 06/12/25 21:56 96/57 L 06/12/25 21:55 87 L 06/12/25 21:55 86 06/12/25 21:52 97 06/12/25 21:52 77 06/12/25 21:47 97 06/12/25 21:47 71 06/12/25 21:42 98 06/12/25 21:42 69 06/12/25 21:37 97 06/12/25 21:37 67 06/12/25 21:32 97 06/12/25 21:32 67 06/12/25 21:27 98 06/12/25 21:27 71 06/12/25 21:26 76 06/12/25 21:26 140/69 06/12/25 21:22 97 06/12/25 21:22 80 06/12/25 21:17 99 06/12/25 21:17 101 H 06/12/25 21:12 98 06/12/25 21:12 74 06/12/25 21:11 79 06/12/25 21:11 139/73 06/12/25 21:07 99 06/12/25 21:07 79 06/12/25 21:02 98 06/12/25 21:02 78 06/12/25 20:57 99 06/12/25 20:57 72 06/12/25 20:56 18 06/12/25 20:56 36.7 C 18 06/12/25 20:56 85 06/12/25 20:56 109/78 06/12/25 20:52 100 06/12/25 20:52 86 06/12/25 20:47 100 06/12/25 20:47 83 06/12/25 20:43 90 06/12/25 20:43 102 H 06/12/25 20:42 98 06/12/25 20:42 98 H 06/12/25 20:41 66 06/12/25 20:41 112/62 06/12/25 20:37 100 06/12/25 20:37 73 06/12/25 20:32 99 06/12/25 20:32 77 06/12/25 20:27 82 L 06/12/25 20:27 78 06/12/25 20:22 100 06/12/25 20:22 67 06/12/25 20:17 100 06/12/25 20:17 67 06/12/25 20:12 99 06/12/25 20:12 68 06/12/25 20:10 67 06/12/25 20:10 112/68 06/12/25 20:07 98 06/12/25 20:07 83 06/12/25 20:02 100 06/12/25 20:02 79 06/12/25 19:57 99 06/12/25 19:57 74 06/12/25 19:55 77 06/12/25 19:55 109/66 06/12/25 19:52 100 06/12/25 19:52 78 06/12/25 19:47 100 06/12/25 19:47 75 06/12/25 19:42 99 06/12/25 19:42 76 06/12/25 19:40 73 06/12/25 19:40 111/63 06/12/25 19:37 100 06/12/25 19:37 73 06/12/25 19:32 99 06/12/25 19:32 76 06/12/25 19:27 100 06/12/25 19:27 77 06/12/25 19:26 80 06/12/25 19:26 116/71 06/12/25 19:22 100 06/12/25 19:22 75 06/12/25 19:17 100 06/12/25 19:17 76 06/12/25 19:12 100 06/12/25 19:12 75 06/12/25 19:12 112/60 06/12/25 19:07 100 06/12/25 19:07 96 H 06/12/25 19:02 100 06/12/25 19:02 95 H 06/12/25 19:00 36.7 C 18 06/12/25 19:00 87 L 06/12/25 19:00 87 06/12/25 18:57 100 06/12/25 18:57 88 06/12/25 18:56 73 06/12/25 18:56 113/71 06/12/25 18:52 100 06/12/25 18:52 84 06/12/25 18:47 100 06/12/25 18:47 76 06/12/25 18:42 98 06/12/25 18:42 82 06/12/25 18:41 72 06/12/25 18:41 112/70 06/12/25 18:37 100 06/12/25 18:37 75 06/12/25 18:32 100 06/12/25 18:32 81 06/12/25 18:27 100 06/12/25 18:27 76 06/12/25 18:27 111/73 06/12/25 18:22 100 06/12/25 18:22 79 06/12/25 18:17 100 06/12/25 18:17 76 06/12/25 18:12 100 06/12/25 18:12 77 06/12/25 18:10 81 06/12/25 18:10 113/06/12/25 18:07 99 06/12/25 18:07 79 06/12/25 18:04 80 06/12/25 18:04 112/74 06/12/25 18:02 100 06/12/25 18:02 88 06/12/25 18:02 109/69 06/12/25 18:00 91 H 06/12/25 18:00 100/71 06/12/25 17:58 90 06/12/25 17:58 103/72 06/12/25 17:57 100 06/12/25 17:57 85 06/12/25 17:56 100/68 06/12/25 17:54 82 06/12/25 17:54 111/70 06/12/25 17:52 96 06/12/25 17:52 89 06/12/25 17:52 114/67 06/12/25 17:50 73 06/12/25 17:50 113/70 06/12/25 17:48 75 06/12/25 17:48 116/70 06/12/25 17:47 100 06/12/25 17:47 82 06/12/25 17:46 79 06/12/25 17:46 122/74 06/12/25 17:44 71 06/12/25 17:44 113/62 06/12/25 17:42 100 06/12/25 17:42 87 06/12/25 17:42 114/88 06/12/25 17:42 94 06/12/25 17:42 109 H 06/12/25 17:40 81 06/12/25 17:40 121/83 06/12/25 17:37 100 06/12/25 17:37 87 06/12/25 17:32 97 06/12/25 17:32 96 H 06/12/25 17:27 98 06/12/25 17:27 92 H 06/12/25 17:22 100 06/12/25 17:22 74 06/12/25 17:17 100 06/12/25 17:17 75 06/12/25 14:42 36.7 C 22 06/12/25 14:33 36.7 C 84 22 129/80 Coding Level of Care Code None
[2025-06-12] MEDS: OXYTOCIN 30 UNITS/NSS 30 UNITS/500 ML BAG IV PRN (22:37)
--- NOTE | 2025-06-12 23:42 | Anesthesia Procedure Note ---
Date of Service June 12, 2025 Anesthesia Post Epidural Note Vital Signs Vital Signs: Temp Pulse Resp BP Pulse Ox 36.7 C 80 18 119/70 97 06/12/25 20:56 06/12/25 23:29 06/12/25 23:30 06/12/25 23:29 06/12/25 22:42 Pain Intensity Abdomen: Pain Intensity: 2 Notes Mental Status: alert / awake / arousable and participated in evaluation Patient Amnestic to Procedure: No Nausea / Vomiting: adequately controlled Pain: adequately controlled Airway Patency, RR, SpO2: stable & adequate BP & HR: stable & adequate Hydration State: stable & adequate Neuraxial Anesthesia: was administered and sensory block is resolving Anesthetic Complications: no major complications apparent and Pt Satisfied with anesthetic care Epidural: Removed without complications and With tip intact
--- NOTE | 2025-06-12 23:42 | Delivery Summary ---
Vaginal Delivery Summary Date of Service June 12, 2025 Vaginal Delivery Summary [facility] Vaginal Delivery Summary: Pre-delivery diagnoses: 29yo @ 39w1d, spontaneous labor Post-delivery diagnoses: same Procedure: spontaneous vaginal delivery Surgeon: Angelita Sheppard DO Complications: none Findings: Viable female . Apgars: 8/9. Weight pending, please see nursery records Estimated QBL: 1cc per L&D blood loss measurement protocol Description of delivery: The patient progressed to complete with epidural anesthesia. She then began to push. She spontaneously vaginally delivered a viable from the cephalic presentation. The head delivered in THIAGO position. The anterior hand and shoulder delivered, followed by the posterior shoulder, followed by the body. The baby was placed on mother's abdomen and a spontaneous cry was heard. Delayed cord clamping was employed, and the cord was doubly clamped and cut. Cord blood was obtained. The placenta was delivered spontaneously intact with a 3-vessel cord. The uterus and vagina were swept of clots and debris. IV pitocin was given. The uterus became firm. The cervix, vagina, and perineum were inspected and no lacerations were noted. Excellent hemostasis was observed. The mother and baby are recovering in stable and good condition in the room. Sponge and instrument counts were correct x 2. Angelita Sheppard DO [facility] Vaginal Delivery Charge Vaginal Delivery Codes: 49923 global code for the antepartum, delivery, and post- Delivery Type Details: [facility]
[2025-06-13] MEDS ORDERED: OXYTOCIN 30 UNITS/NSS 30 UNITS/500 ML BAG IV PRN (00:39)
[2025-06-13] MEDS ORDERED: HYDROCORTISONE ACETATE 25 MG SUPP PR PRN (00:39)
[2025-06-13] MEDS ORDERED: DIPHTHER/TETAN/PERTUS Vaccine (Tdap, Adol/Adult) 0.5mL IM ONE (00:39)
[2025-06-13] MEDS: BENZOCAINE 20% SPRY 85 APPLN/85 GM CAN EXT PRN (02:22)
[2025-06-13] MEDS: ACETAMINOPHEN 325 MG TAB PO PRN (05:37)
[2025-06-13 06:08] LABS: Hematocrit (blood only) 36.2 % (37.0-47.0); Hemoglobin 12.2 g/dL (12.0-16.0)
--- NOTE | 2025-06-13 06:25 | Obstetrical Progress Note ---
Date of Service June 13, 2025 Assessment & Plan (1) care following vaginal delivery: Plan 29 yo post- day 1 s/p Feels well today. Vital signs stable Continue post- care Encourage ambulation and Pain controlled with ibuprofen Hgb stable Patient would like to be leave as soon as possible, preferably around 7am tomorrow morning Admission and Anticipated Discharge Date Admission Date: June 12, 2025 Supervising Physician Co-Signing Physician Notes Resident Physician Supervision Note: I was present with Dr. Barrios during the history and exam. I discussed the case with the resident and agree with the findings and plan as documented in the note. Any exceptions or clarifications are listed here: PPD#1 doing well, desires DC early AM tomorrow. Reviewed Dc instructions, followup in office 6w. Documented By: Angelita Sheppard, Subjective 29 yo post- day 1 s/p Ambulation: ambulating normally Voiding: no voiding problems Passing Gas:: No Passing Stool:: No Diet Tolerance:: regular diet Lochia:: Small Feeding Type:: breast and bottle feeding Current Pain Level: 3/10 Resting comfortably this AM in NAD. Denies CACERES, CP, SOB, N/V/D, LE pain/swelling. Review of Systems Review of Systems: All systems reviewed & are unremarkable except as noted in HPI & below Physical Exam Physical Exam: General: patient resting comfortably, NAD, non-toxic in appearance, AA&O x 4, answers questions appropriately. Skin: warm, dry, intact HEENT: NC/AT, anicteric sclera, conjunctiva without injection, moist mucus membranes. Heart: +S1/S2, regular, no m/r/g Lungs: equal air entry bilaterally, no rales/rhonchi/wheezes Abd: +BS, soft, NT/ND, uterine fundus firm 1 FB below umbilicus Ext: warm, no clubbing/cyanosis or edema, Cristal's neg. Neuro: nonfocal, patient AA&O x 4, speech intact, no facial droop, moving all extremities on command. Results & Data Vital Signs (Past 12 Hours) Vital Signs Temp Pulse Pulse Resp BP BP Pulse Ox 06/13/25 02:57 36.5 C 65 16 115/72 98 06/13/25 01:00 36.3 C L 71 16 110/78 97 06/13/25 00:45 36.8 C 16 06/13/25 00:42 82 124/84 06/13/25 00:15 15 06/13/25 00:14 92 H 111/55 L 06/12/25 23:59 80 06/12/25 23:59 114/61 06/12/25 23:45 18 06/12/25 23:30 18 06/12/25 23:29 80 06/12/25 23:29 119/70 06/12/25 23:15 16 06/12/25 23:14 84 06/12/25 23:14 113/69 06/12/25 23:00 16 06/12/25 22:59 88 06/12/25 22:59 110/64 06/12/25 22:45 18 06/12/25 22:45 111 H 06/12/25 22:45 104/56 L 06/12/25 22:42 97 06/12/25 22:42 88 06/12/25 22:37 97 06/12/25 22:37 81 06/12/25 22:32 98 06/12/25 22:32 101 H 06/12/25 22:30 87 L 06/12/25 22:30 98 H 06/12/25 22:27 98 06/12/25 22:27 97 H 06/12/25 22:22 98 06/12/25 22:22 94 H 06/12/25 22:17 97 06/12/25 22:17 86 06/12/25 22:12 98 06/12/25 22:12 95 H 06/12/25 22:12 82 06/12/25 22:12 103/57 L 06/12/25 22:07 97 06/12/25 22:07 75 06/12/25 22:02 96 06/12/25 22:02 80 06/12/25 21:57 96 06/12/25 21:57 95 H 06/12/25 21:56 109 H 06/12/25 21:56 96/57 L 06/12/25 21:55 87 L 06/12/25 21:55 86 06/12/25 21:52 97 06/12/25 21:52 77 06/12/25 21:47 97 06/12/25 21:47 71 06/12/25 21:42 98 06/12/25 21:42 69 06/12/25 21:37 97 06/12/25 21:37 67 06/12/25 21:32 97 06/12/25 21:32 67 06/12/25 21:27 98 06/12/25 21:27 71 06/12/25 21:26 76 06/12/25 21:26 140/69 06/12/25 21:22 97 06/12/25 21:22 80 06/12/25 21:17 99 06/12/25 21:17 101 H 06/12/25 21:12 98 06/12/25 21:12 74 06/12/25 21:11 79 06/12/25 21:11 139/73 06/12/25 21:07 99 06/12/25 21:07 79 06/12/25 21:02 98 06/12/25 21:02 78 06/12/25 20:57 99 06/12/25 20:57 72 06/12/25 20:56 18 06/12/25 20:56 36.7 C 18 06/12/25 20:56 85 06/12/25 20:56 109/78 06/12/25 20:52 100 06/12/25 20:52 86 06/12/25 20:47 100 06/12/25 20:47 83 06/12/25 20:43 90 06/12/25 20:43 102 H 06/12/25 20:42 98 06/12/25 20:42 98 H 06/12/25 20:41 66 06/12/25 20:41 112/62 06/12/25 20:37 100 06/12/25 20:37 73 06/12/25 20:32 99 06/12/25 20:32 77 06/12/25 20:27 82 L 06/12/25 20:27 78 06/12/25 20:22 100 06/12/25 20:22 67 06/12/25 20:17 100 06/12/25 20:17 67 06/12/25 20:12 99 06/12/25 20:12 68 06/12/25 20:10 67 06/12/25 20:10 112/68 06/12/25 20:07 98 11/20/25 20:07 83 06/12/25 20:02 100 06/12/25 20:02 79 06/12/25 19:57 99 06/12/25 19:57 74 06/12/25 19:55 77 06/12/25 19:55 109/66 06/12/25 19:52 100 06/12/25 19:52 78 06/12/25 19:47 100 06/12/25 19:47 75 06/12/25 19:42 99 06/12/25 19:42 76 06/12/25 19:40 73 06/12/25 19:40 111/63 06/12/25 19:37 100 06/12/25 19:37 73 06/12/25 19:32 99 06/12/25 19:32 76 06/12/25 19:27 100 06/12/25 19:27 77 06/12/25 19:26 80 06/12/25 19:26 116/71 06/12/25 19:22 100 06/12/25 19:22 75 06/12/25 19:17 100 06/12/25 19:17 76 06/12/25 19:12 100 06/12/25 19:12 75 06/12/25 19:12 112/60 06/12/25 19:07 100 06/12/25 19:07 96 H 06/12/25 19:02 100 06/12/25 19:02 95 H 06/12/25 19:00 36.7 C 18 06/12/25 19:00 87 L 06/12/25 19:00 87 06/12/25 18:57 100 06/12/25 18:57 88 06/12/25 18:56 73 06/12/25 18:56 113/71 06/12/25 18:52 100 06/12/25 18:52 84 06/12/25 18:47 100 06/12/25 18:47 76 06/12/25 18:42 98 06/12/25 18:42 82 06/12/25 18:41 72 06/12/25 18:41 112/70 06/12/25 18:37 100 06/12/25 18:37 75 06/12/25 18:32 100 06/12/25 18:32 81 06/12/25 18:27 100 06/12/25 18:27 76 06/12/25 18:27 111/73 O2 Del Method 06/13/25 02:57 Room Air 06/13/25 01:00 Room Air 06/13/25 00:45 06/13/25 00:42 06/13/25 00:15 06/13/25 00:14 06/12/25 23:59 06/12/25 23:59 06/12/25 23:45 06/12/25 23:30 06/12/25 23:29 06/12/25 23:29 06/12/25 23:15 06/12/25 23:14 06/12/25 23:14 06/12/25 23:00 06/12/25 22:59 06/12/25 22:59 06/12/25 22:45 06/12/25 22:45 06/12/25 22:45 06/12/25 22:42 06/12/25 22:42 06/12/25 22:37 06/12/25 22:37 06/12/25 22:32 06/12/25 22:32 06/12/25 22:30 06/12/25 22:30 06/12/25 22:27 06/12/25 22:27 06/12/25 22:22 06/12/25 22:22 06/12/25 22:17 06/12/25 22:17 06/12/25 22:12 06/12/25 22:12 06/12/25 22:12 06/12/25 22:12 06/12/25 22:07 06/12/25 22:07 06/12/25 22:02 06/12/25 22:02 06/12/25 21:57 06/12/25 21:57 06/12/25 21:56 06/12/25 21:56 06/12/25 21:55 06/12/25 21:55 06/12/25 21:52 06/12/25 21:52 06/12/25 21:47 06/12/25 21:47 06/12/25 21:42 06/12/25 21:42 06/12/25 21:37 06/12/25 21:37 06/12/25 21:32 06/12/25 21:32 06/12/25 21:27 06/12/25 21:27 06/12/25 21:26 06/12/25 21:26 06/12/25 21:22 06/12/25 21:22 06/12/25 21:17 06/12/25 21:17 06/12/25 21:12 06/12/25 21:12 06/12/25 21:11 06/12/25 21:11 06/12/25 21:07 06/12/25 21:07 06/12/25 21:02 06/12/25 21:02 06/12/25 20:57 06/12/25 20:57 06/12/25 20:56 06/12/25 20:56 06/12/25 20:56 06/12/25 20:56 06/12/25 20:52 06/12/25 20:52 06/12/25 20:47 06/12/25 20:47 06/12/25 20:43 06/12/25 20:43 06/12/25 20:42 06/12/25 20:42 06/12/25 20:41 06/12/25 20:41 06/12/25 20:37 06/12/25 20:37 06/12/25 20:32 06/12/25 20:32 06/12/25 20:27 06/12/25 20:27 06/12/25 20:22 06/12/25 20:22 06/12/25 20:17 06/12/25 20:17 06/12/25 20:12 06/12/25 20:12 06/12/25 20:10 06/12/25 20:10 06/12/25 20:07 06/12/25 20:07 06/12/25 20:02 06/12/25 20:02 06/12/25 19:57 06/12/25 19:57 06/12/25 19:55 06/12/25 19:55 06/12/25 19:52 06/12/25 19:52 06/12/25 19:47 06/12/25 19:47 06/12/25 19:42 06/12/25 19:42 06/12/25 19:40 06/12/25 19:40 06/12/25 19:37 06/12/25 19:37 06/12/25 19:32 06/12/25 19:32 06/12/25 19:27 06/12/25 19:27 06/12/25 19:26 06/12/25 19:26 06/12/25 19:22 06/12/25 19:22 06/12/25 19:17 06/12/25 19:17 06/12/25 19:12 06/12/25 19:12 06/12/25 19:12 06/12/25 19:07 06/12/25 19:07 06/12/25 19:02 06/12/25 19:02 06/12/25 19:00 06/12/25 19:00 06/12/25 19:00 06/12/25 18:57 06/12/25 18:57 06/12/25 18:56 06/12/25 18:56 06/12/25 18:52 06/12/25 18:52 06/12/25 18:47 06/12/25 18:47 06/12/25 18:42 06/12/25 18:42 06/12/25 18:41 06/12/25 18:41 06/12/25 18:37 06/12/25 18:37 06/12/25 18:32 06/12/25 18:32 06/12/25 18:27 06/12/25 18:27 06/12/25 18:27 Laboratory Results OB Labs: Blood Type A Positive 11/11/24 Antibody Screen NEGATIVE 11/11/24 Hgb 12.1 g/dl (12.0-16.0) 04/02/25 Hct 35.8 % (37.0-47.0) L 04/02/25 MCV 86.6 fL (80.0-100.0) 11/11/24 Plt Count 218 K/uL (130-400) 11/11/24 Rubella IgG Antibody Immune (Immune) 11/11/24 RPR Nonreactive (Nonreactive) 10/03/22 Treponema pallidum Ab Negative (Negative) 04/02/25 Hep Bs Antigen Negative (Negative) 11/11/24 Hep Bs Antigen NON-REACTIVE (NON-REACTIVE) 10/03/22 Hepatitis C Antibody Negative (Negative) 11/11/24 Hepatitis C Ab (EIA) NON-REACTIVE (NON-REACTIVE) 10/03/22 HIV 1&2 Ab/P24 Ag 4thGn Negative (Negative) 11/11/24 HIV (1&2) Ag & Ab Conf NON-REACTIVE (NON-REACTIVE) 10/03/22 Glucose 1 Hr 50 gm 77 mg/dl (70-130) 04/02/25 Maternal Serum AFP 18.7 ng/mL 12/30/24 OB Optional Labs: Chlamydia trachomatis RNA Not Detected (NotDetected) 11/11/24 Neisseria gonorrhoeae RNA Not Detected (NotDetected) 11/11/24 Alpha Fetoprotein Triple Screen SEE NOTE 12/30/24 Labs Reviewed: low risk cfdna neg afp Resident Activity Tracking Resident Involvement: Resident Care Provided Care Provided: OB Delivery
[2025-06-13] MEDS: PRENATAL VITAMIN 1 TAB PO SCH (08:08)
[2025-06-13] MEDS: DOCUSATE SODIUM 100 MG CAP PO SCH (08:08)
[2025-06-13] MEDS: IBUPROFEN 600 MG TAB PO PRN (08:08)
[2025-06-13 15:58] VITALS: RESP 16
[2025-06-13 20:41] VITALS: O2SAT 98
--- NOTE | 2025-06-14 06:21 | Obstetrical Progress Note ---
Date of Service June 14, 2025 Assessment & Plan (1) care following vaginal delivery: Plan 29 yo post- day 2 s/p Feels well today. Vital signs stable Continue post- care Encourage ambulation and Pain controlled with ibuprofen Hgb stable Discharge today, follow up with Dr. Sheppard in 6 weeks for appt Admission and Anticipated Discharge Date Admission Date: June 12, 2025 Supervising Physician Co-Signing Physician Notes Resident Physician Supervision Note: I interviewed and examined the patient. Discussed with Dr. Barrios and agree with findings and plan as documented in the note. Any exceptions or clarifications are listed here: Doing well. Desires d/c. Instructions given. f/u in 6 weeks. Documented By: Beatriz Guo MD, FACOG Subjective 29 yo post- day 2 s/p Ambulation: ambulating normally Voiding: no voiding problems Passing Gas:: Yes Passing Stool:: No Diet Tolerance:: regular diet Lochia:: Small Feeding Type:: breast and bottle feeding Current Pain Level: 3/10 Resting comfortably this AM in NAD. Denies CACERES, CP, SOB, N/V/D, LE pain/swelling. Review of Systems Review of Systems: All systems reviewed & are unremarkable except as noted in HPI & below Physical Exam Physical Exam: General: patient resting comfortably, NAD, non-toxic in appearance, AA&O x 4, answers questions appropriately. Skin: warm, dry, intact HEENT: NC/AT, anicteric sclera, conjunctiva without injection, moist mucus membranes. Heart: +S1/S2, regular, no m/r/g Lungs: equal air entry bilaterally, no rales/rhonchi/wheezes Abd: +BS, soft, NT/ND, uterine fundus firm 2 FB below umbilicus Ext: warm, no clubbing/cyanosis or edema, Cristal's neg. Neuro: nonfocal, patient AA&O x 4, speech intact, no facial droop, moving all extremities on command. Results & Data Vital Signs (Past 12 Hours) Vital Signs Temp Pulse Resp BP Pulse Ox O2 Del Method 06/13/25 23:15 36.6 C 63 16 114/79 98 Room Air 06/13/25 20:30 36.6 C 56 L 16 120/75 98 Room Air Laboratory Results OB Labs: Blood Type A Positive 11/11/24 Antibody Screen NEGATIVE 11/11/24 Hgb 12.1 g/dl (12.0-16.0) 04/02/25 Hct 35.8 % (37.0-47.0) L 04/02/25 MCV 86.6 fL (80.0-100.0) 11/11/24 Plt Count 218 K/uL (130-400) 11/11/24 Rubella IgG Antibody Immune (Immune) 11/11/24 RPR Nonreactive (Nonreactive) 10/03/22 Treponema pallidum Ab Negative (Negative) 04/02/25 Hep Bs Antigen Negative (Negative) 11/11/24 Hep Bs Antigen NON-REACTIVE (NON-REACTIVE) 10/03/22 Hepatitis C Antibody Negative (Negative) 11/11/24 Hepatitis C Ab (EIA) NON-REACTIVE (NON-REACTIVE) 10/03/22 HIV 1&2 Ab/P24 Ag 4thGn Negative (Negative) 11/11/24 HIV (1&2) Ag & Ab Conf NON-REACTIVE (NON-REACTIVE) 10/03/22 Glucose 1 Hr 50 gm 77 mg/dl (70-130) 04/02/25 Maternal Serum AFP 18.7 ng/mL 12/30/24 OB Optional Labs: Chlamydia trachomatis RNA Not Detected (NotDetected) 11/11/24 Neisseria gonorrhoeae RNA Not Detected (NotDetected) 11/11/24 Alpha Fetoprotein Triple Screen SEE NOTE 12/30/24 Resident Activity Tracking Resident Involvement: Resident Care Provided Care Provided: OB Delivery
[2025-06-14 08:47] VITALS: BP 120/81; PULSE 93; TEMP 98.2
== END 2025-06-14 09:22 | disposition home or self-care (01) | DRG 807 ==
LOC: OPB 14:25 → 4S1 14:28 → 4E2 06-13 01:17